=== PATIENT | male | born 2000 | race Hispanic/Latino ===

== ENCOUNTER 2019-12-18 19:50 | Emergency (ER) | payer OTHER ==
[2019-12-18] MEDS ORDERED: TETANUS,DIPHTHERIA,PERTUSSIS 1 EA SYG IM ONE (19:58)
[2019-12-18] MEDS ORDERED: ceFAZolin SODIUM 1 GM in SODIUM CHL 0.9% 50ML MIN-BAG+ 50 ML IVPB ONE (20:10)
--- NOTE | 2019-12-18 20:20 | RAD ---
EXAM DESCRIPTION: XR Foot, Right 2 Views CLINICAL HISTORY: dropped a metal beam on his foot, bleeding big toe TECHNIQUE: 2 views of the right foot are submitted. COMPARISON: None available for comparison FINDINGS: Bones: Comminuted, minimally displaced 1st distal phalangeal fracture predominantly involving the tuft. There is a vertically oriented linear lucency extending from the lateral 1st distal phalangeal neck to the base with slight cortical step-off at the lateral base. Joints: No dislocation. Developmental fusion at the 5th DIP articulation. Soft tissues: Surrounding soft tissue swelling. Punctate radiodensity within the dorsal soft tissues at the level of the lateral 1st distal phalangeal tuft. IMPRESSION: 1st distal phalangeal fracture with suggestion for intra-articular extension. Punctate radiodensity within the dorsal soft tissues at the level of the lateral 1st distal phalangeal tuft thought to reflect a foreign body. Electronically signed by: Malvin Thompson MD 12/18/2019 8:18 PM CDT
[2019-12-18] MEDS ORDERED: LIDOCAINE 1% 10 ML VIAL INJ ONE (21:20)
--- NOTE | 2019-12-18 21:21 | ED.PDOC ---
History of Present Illness - General Chief Complaint: Lower Extremity Injury Stated Complaint: beam fell on rt foot Time Seen by Provider: 12/18/19 20:10 Source: patient, RN notes reviewed, Vital Signs reviewed Exam Limitations: no limitations - History of Present Illness Initial Comments: Patient is a 19-year-old male who presents after dropping a steel beam on his right great toe. Patient noted immediate onset of a sharp stabbing and throbbing pain. Severe in intensity. The foot was bleeding. When patient removed his shoe he noted that he had a crushed right great toe with associated bleeding. Nothing makes the pain better. It is worse with walking or palpation. There is no radiation of the pain. Occurred: just prior to arrival Pain - Lower Extremity: severe: Right Foot Method of Injury: direct blow - Dropped a steel beam on his toe Improving Factors: nothing Worsening Factors: movement Allergies/Adverse Reactions: Allergies NO KNOWN ALLERGY Allergy (Verified 12/18/19 19:56) Home Medications: Ambulatory Orders Acetaminophen W/ Codeine [Tylenol W/ CODEINE #3] 1 tablet PO Q6H #16 12/18/19 Amoxicillin & Pot Clavulanate [Augmentin Tab] 875 mg PO BID #14 tab 12/18/19 Review of Systems - Review of Systems Constitutional: States: no symptoms reported, see HPI. Denies: chills, fever, malaise, weakness EENTM: States: no symptoms reported. Denies: eye pain, blurred vision, double vision Respiratory: States: no symptoms reported. Denies: cough, short of breath, stridor, wheezing Cardiology: States: no symptoms reported. Denies: chest pain, palpitations, syncope Gastrointestinal/Abdominal: States: no symptoms reported. Denies: abdominal pain, constipation, diarrhea, nausea, vomiting Genitourinary: States: no symptoms reported Musculoskeletal: States: see HPI, joint pain - Right great toe, joint swelling Skin: States: see HPI, other - Patient has bleeding from the right great toe and a skin tear Neurological: States: no symptoms reported. Denies: numbness, tingling, tremors, weakness Endocrine: States: no symptoms reported Hematologic/Lymphatic: States: no symptoms reported All other Systems: Reviewed and Negative Physical Exam - Physical Exam General Appearance: Alert, Anxious, Obvious distress, Well Developed, Well Groomed, Well Hydrated, Well Nourished Eyes, Ears, Nose, Throat: PERRL/EOMI, normal ENT inspection, pharynx normal Neck: non-tender, full range of motion, supple, normal inspection Cardiovascular/Respiratory: regular rate, rhythm, no M/R/G, normal peripheral pulses, no JVD, normal breath sounds, no respiratory distress Gastrointestinal/Abdominal: non-tender, no organomegaly Back: normal inspection, no CVA tenderness, no vertebral tenderness Thigh/Hip: normal inspection, non-tender, no evidence of injury Leg: normal inspection, non-tender, no evidence of injury, normal ROM Knee: normal inspection, non-tender, no evidence of injury, normal ROM Ankle: normal inspection, non-tender, no evidence of injury, normal ROM Foot: bone tenderness - Right great toe, deformity - Right great toe, nail injury - Right great toe Neuro/Tendon: normal sensation, normal motor functions, normal tendon functions, responds to pain Mental Status: alert, oriented x 3 Skin: normal color, warm/dry Progress - Progress Progress: Differential diagnosis: Toe fracture, toe contusion, nailbed laceration, foot fracture among others 12/18/19 22:34 X-rays show a first phalanges fracture with intra-articular extension. By definition this is an open fracture as there was a nailbed injury. The wound was cleaned. Patient was given antibiotics and a tetanus prophylaxis. Nailbed injury was repaired and nail was replaced. Plan discharge home with p.o. antibiotics and pain medicine. I discussed the plan of care with the patient and he voices understanding and agreement with the plan of care. I will refer the patient to orthopedics. Lavell Hill M.D. #[id number] - Results/Orders Results/Orders: EXAM DESCRIPTION: XR Foot, Right 2 Views CLINICAL HISTORY: dropped a metal beam on his foot, bleeding big toe TECHNIQUE: 2 views of the right foot are submitted. COMPARISON: None available for comparison FINDINGS: Bones: Comminuted, minimally displaced 1st distal phalangeal fracture predominantly involving the tuft. There is a vertically oriented linear lucency extending from the lateral 1st distal phalangeal neck to the base with slight cortical step-off at the lateral base. Joints: No dislocation. Developmental fusion at the 5th DIP articulation. Soft tissues: Surrounding soft tissue swelling. Punctate radiodensity within the dorsal soft tissues at the level of the lateral 1st distal phalangeal tuft. IMPRESSION: 1st distal phalangeal fracture with suggestion for intra-articular extension. Punctate radiodensity within the dorsal soft tissues at the level of the lateral 1st distal phalangeal tuft thought to reflect a foreign body. Electronically signed by: Malvin Thompson MD 12/18/2019 8:18 PM CDT Procedures - Laceration/Wound Repair Right Toe Wound Length (cm): 1 Wound's Depth, Shape: stellate, nail-avulsed, contused tissue Wound Explored: no foreign body removed Irrigated w/ Saline (cc's): 50 Betadine Prep?: No Anesthesia: 1% Lidocaine Volume Anesthetic (cc's): 8 Wound Debrided: minimal Wound Repaired With: sutures Suture Size/Type: 4:0, fast absorbing gut Number of Sutures: 2 Layer Closure?: No Sterile Dressing Applied?: Yes Splint Applied?: No Sling Applied?: No Progress: X-rays showed tuft fracture and intra-articular extension. Nail was significantly loosened and was only attached by a small thread of tissue. The nail was removed and cleaned and trimmed. Wound was cleaned and irrigated. To 4-0 Chromic Gut was used to close a 1 cm stellate lack on the nailbed. 2 sutures were used. Then the cleaned nail was trephinated with 2 holes, placed back into the nail cleft and sutured in place to the nailbed with the Vicryl thread. Patient tolerated procedure well estimated blood loss was less than 5 mL's. There were no complications. Departure - Departure Clinical Impression: Need for prophylactic vaccination using tetanus and diphtheria toxoids adsorbed (Td) vaccine Open toe fracture Qualifiers: Encounter type: initial encounter Toe: great toe Phalanx: distal Fracture alignment: nondisplaced Laterality: right Qualified Code(s): S92.424B - Nondisplaced fracture of distal phalanx of right great toe, initial encounter for open fracture Nailbed laceration, toe Qualifiers: Encounter type: initial encounter Qualified Code(s): S91.219A - Laceration without foreign body of unspecified toe(s) with damage to nail, initial encounter Time of Disposition: 22:50 Disposition: Discharge to Home or Self Care Condition: Good Departure Forms: ED Discharge - Pt. Copy, Patient Portal Self Enrollment Instructions: Toe Fracture (DC), Toe Injury (DC), Nail Avulsion (DC) Diet: resume usual diet Activity: increase activity as tolerated Referrals: Johnny Poe MD [Active Staff] - 1-5 Days Prescriptions: Acetaminophen W/ Codeine [Tylenol W/ CODEINE #3] 1 tablet PO Q6H #16 Amoxicillin & Pot Clavulanate [Augmentin Tab] 875 mg PO BID #14 tab Home Medications: Ambulatory Orders Acetaminophen W/ Codeine [Tylenol W/ CODEINE #3] 1 tablet PO Q6H #16 12/18/19 Amoxicillin & Pot Clavulanate [Augmentin Tab] 875 mg PO BID #14 tab 12/18/19
[2019-12-18] MEDS ORDERED: ACETAMINOPHEN W/COD #3 TAB (ER Disp) PO ONE (22:54)
[2019-12-18 23:35] VITALS: O2SAT 99
[2019-12-18] MEDS ORDERED: EPINEPHrine HCL AMP 1 MG/ML AMP ONE (23:56)
[2019-12-18 23:57] VITALS: BP 123/75; TEMP 99.1
== END 2019-12-18 23:10 | disposition home or self-care (01) ==
LOC: ER 19:50
DX: S92.424B Nondisplaced fracture of distal phalanx of right great toe, initial encounter for open fracture (principal); W20.8XXA Other cause of strike by thrown, projected or falling object, initial encounter; Y92.9 Unspecified place or not applicable
CPT/HCPCS: 73620; 90471; 90715; J0690; J7050